=== PATIENT | male | born 1965 | race Caucasian/White ===

== ENCOUNTER 2017-08-03 05:59 | Day surgery (SDC) | payer OTHER ==
[2017-07-27 15:10] VITALS: BMI 28.5
[2017-08-03] MEDS ORDERED: ROPIVACAINE HCL 0.5% 30ML VIAL ONE (06:50)
[2017-08-03] MEDS ORDERED: DEXAMETHASONE SOD PHOSPHATE/PF 10 MG/ML SDV ONE (06:50)
[2017-08-03] MEDS ORDERED: MIDAZOLAM HCL 2 MG/2 ML SINGLE DOSE VIAL ONE (06:50)
[2017-08-03] MEDS ORDERED: EPINEPHrine 1:1,000 1 MG/1 ML - 30ML VIAL (INJECTION) ONE (07:08)
[2017-08-03] MEDS ORDERED: SUCCINYLCHOLINE CHLORIDE 200 MG/10 ML VIAL ONE (07:58)
[2017-08-03] MEDS ORDERED: PROPOFOL 20 ML ONE ×2 (07:58)
[2017-08-03] MEDS ORDERED: DEXAMETHASONE SOD PHOSPHATE 4 MG/1 ML VIAL ONE (08:14)
[2017-08-03] MEDS ORDERED: ceFAZolin SODIUM 1 GM VIAL ONE (08:14)
[2017-08-03] MEDS ORDERED: ONDANSETRON 4 MG/2 ML VIAL ONE (08:14)
[2017-08-03] MEDS ORDERED: PROMETHAZINE HCL 25 MG/1 ML VIAL IVPUSH PRN (09:58)
[2017-08-03] MEDS ORDERED: ONDANSETRON 4 MG/2 ML VIAL IVPUSH PRN (09:58)
--- NOTE | 2017-08-03 11:02 | OP ---
DATE OF OPERATION: 08/03/2017 PREOPERATIVE DIAGNOSIS: Right shoulder rotator cuff tear. POSTOPERATIVE DIAGNOSES: 1. Right shoulder rotator cuff tear. 2. Right shoulder diffuse glenoid labrum tearing. 3. Right shoulder diffuse synovitis. 4. 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 5. Right shoulder subacromial impingement syndrome with subacromial spur. OPERATIVE PROCEDURES: 1. Right shoulder upper arthroscopy with repair of right rotator cuff tear. 2. Right shoulder glenohumeral joint extensive debridement of labrum synovitis and glenoid articular cartilage. 3. Right shoulder arthroscopic subacromial decompression with anterior-inferior acromioplasty. SURGEON: Thierry Valera MD STRAP BUCKLER: CHAVEZ Timmons ANESTHESIA: Regional. COMPLICATIONS: None. ESTIMATED BLOOD LOSS: Minimal. INDICATIONS FOR PROCEDURE: The patient is a 51-year-old male with the above findings, indicated for operative treatment. The risks, benefits, and alternatives were discussed with the patient at length, and proper informed consent was obtained. DESCRIPTION OF PROCEDURE: After proper identification of the patient and the correct operative site, patient was brought to the operating room and placed supine on the operating table. Prominences were well padded. Regional anesthesia was given along with sedation, which was adequate for procedure. Patient was then placed in the beach-chair position with all points of contact well padded. An in-line cervical position was maintained throughout the procedure. Right upper extremity was prepped and draped in usual sterile fashion. Arthroscopy was performed through posterior, lateral, and anterior portals. All portals were made with skin incision only in blunt dissection down to the joint capsule. Glenohumeral joint was first observed and found to have moderate synovitis, which was debrided with mechanical shaver and ArthroWand. Significant partial-thickness tearing and fraying of the glenoid labrum from the 9 o'clock to the 3 o'clock position was noted, and this was debrided with mechanical shaver. The biceps anchor was found to be stable. A full-thickness chondral flap was noted in the central portion of the glenoid, and this was debrided. Subscapularis was found to be intact. Biceps tendon was intact including the extra articular portion. Axillary pouch was free of loose bodies. Anterior supraspinatus tear was found. This was approximately 1.5 cm in anterior-posterior dimension and retracted about 1 cm. This was debrided along with the greater tuberosity, and arthroscope was introduced into the subacromial space where a significant bursitis was noted, and a bursectomy was performed. Anterior-inferior subacromial spur was removed with an acromioplasty using the karena. The greater tuberosity was further prepared and removed from soft tissue, and an Arthrex SpeedBridge technique double-row equivalent rotator cuff repair was performed. Two medial SwiveLock anchors were placed at the articular margin. FiberTape sutures were passed through the rotator cuff in a medial position, and then, crossed and attached laterally with two further SwiveLock anchors. This provided secure stable rotator cuff repair. Shoulder was taken through a range of motion, and no tension on the repair was noted. The rotator cuff was easily reapproximated to the greater tuberosity in this case. Wounds were repaired with 5-0 nylon sutures. Sterile dressings, a sling, and an ice machine were placed. Patient was reversed from sedation and brought to the recovery room in stable condition. He tolerated the procedure well. Aris Whittaker, the general assistant, was integral throughout this procedure. Procedure could not have been performed without a skilled operative general assistant. Gurdeep [id number]
[2017-08-03 13:59] VITALS: BP 122/76; PULSE 60; TEMP 98
== END 2017-08-03 11:35 | disposition home or self-care (01) ==
LOC: FASU 05:59
PROVIDERS: ATTEND Orthopaedic Surgery Hand Surgery
PROC: 0RNJ4ZZ Release Right Shoulder Joint, Percutaneous Endoscopic Approach (ICD-10-PCS; 2017-08-03)
PROC: 0RBJ4ZZ Excision of Right Shoulder Joint, Percutaneous Endoscopic Approach (ICD-10-PCS; 2017-08-03)
PROC: 0LB14ZZ Excision of Right Shoulder Tendon, Percutaneous Endoscopic Approach (ICD-10-PCS; principal; 2017-08-03 08:20)
DX: M75.121 Complete rotator cuff tear or rupture of right shoulder, not specified as traumatic (principal); M24.111 Other articular cartilage disorders, right shoulder; M65.811 Other synovitis and tenosynovitis, right shoulder; M94.211 Chondromalacia, right shoulder; M75.41 Impingement syndrome of right shoulder; M25.711 Osteophyte, right shoulder
CPT/HCPCS: 94760